=== PATIENT | male | born 1965 | race Caucasian/White ===

== ENCOUNTER → 2021-05-23 | Outpatient (CLI) | payer BC ==
[2021-05-23 06:55] LABS: RED BLOOD COUNT 6.57 M/UL (4.20-5.50); WHITE BLOOD COUNT 5.1 K/UL (4.5-11.0)
[2021-05-23 09:07] LABS: HEMOGLOBIN 20.9 gm/dl (14.0-17.5)
[2021-05-24 04:11] LABS: CREATININE, URINE 64.1 mg/dL (Not Estab.)
[2021-05-24 09:14] LABS: THYROXINE (T4) 3.9 ug/dL (4.5-12.0)
== END ==
LOC: LAB 06:28
PROVIDERS: Nurse Practitioner Family
DX: E11.9 Type 2 diabetes mellitus without complications (principal); E78.5 Hyperlipidemia, unspecified
CPT/HCPCS: 36415; 80053; 80061; 81001; 82043; 82570; 83036; 84153; 84436; 84443; 84480; 85025

== ENCOUNTER → 2022-03-24 | Outpatient (CLI) | payer BC | LOC: US 10:56 | DX: R74.8 Abnormal levels of other serum enzymes (principal) | CPT/HCPCS: 76700 ==